=== PATIENT | male | born 1930 | race Caucasian/White ===

== ENCOUNTER 2017-12-02 15:25 | Inpatient (IN) | payer MEDICARE, BC ==
[2017-12-02] VITALS (8 sets, daily range): BP systolic 127–154; BP diastolic 59–67; PULSE 75–102; TEMP 98.2–98.8
[~2017-12-02] VITALS: Ht 162.6 cm; Wt 67.5 kg
[2017-12-02] MEDS ORDERED: FOSAMAX 70MG TA70 MG PO (18:21)
[2017-12-02] MEDS ORDERED: COUMADIN 6MG6 MG/TAB PO (18:23)
[2017-12-02] MEDS ORDERED: LEVEMIR100 U/ML SQ (18:24)
[2017-12-02] MEDS ORDERED: SYNTHROID0.075 MG/T PO (18:27)
[2017-12-02] MEDS ORDERED: REMERON 15M15 MG/TA1 PO (18:29)
[2017-12-02] MEDS ORDERED: K-DUR 10 MEQ T10 MEQ PO (18:30)
[2017-12-02] MEDS ORDERED: ZYLOPRIM 300MG300 MG PO (18:32)
[2017-12-02] MEDS ORDERED: ALDACTONE 25MG25 M1 PO (18:32)
[2017-12-02] MEDS ORDERED: MEVACOR40 MG PO (18:33)
[2017-12-02] MEDS ORDERED: LASIX 20MG TABL20 MG PO (18:34)
[2017-12-02] MEDS ORDERED: PRIL40 PO (18:34)
[2017-12-02] MEDS ORDERED: ZETIA 10MG TAB10 MG PO (18:35)
[2017-12-02] MEDS ORDERED: NAMENDA 10MG TA10 MG PO (18:35)
[2017-12-02 20:57] LABS: BASO % 0.1 % (0.0-2.0); EOS # 0.1 (0.0-0.7); EOS % 0.5 % (0-4.0); GRAN # 8.4 (1.4-6.5); GRAN % 81.2 % (42.2-75.2); HEMOGLOBIN 12.2 g/dl (13.5-18.0); LYMPH % 9.8 % (20.0-51.0); MEAN CELL VOLUME 98 fl (80.0-100.0); MEAN CORPUSCULAR HEMOGLOBIN 33 pg (27.0-31.0); MEAN CORPUSCULAR HGB CONC 33 g/dl (33.0-37.0); MEAN PLATELET VOLUME 10.5 fl (7.4-10.4); MONO # 0.8 (0.1-0.6); MONO % 7.6 % (1.7-9.3); PLATELET COUNT 141 K/mm3 (130-400); RED BLOOD COUNT 3.74 M/mm3 (4.20-5.60); REDCELL DISTRIBUTION WIDTH-CV 14.5 % (11.5-14.5)
[2017-12-02 21:03] LABS: HEMATOCRIT 36.7 % (42.0-52.0)
[2017-12-02 21:09] LABS: ALBUMIN 3.8 gm/dL (3.5-5.0); BILIRUBIN,TOTAL 0.5 mg/dL (0.0-1.0); CALCIUM 7.9 mg/dL (8.4-10.2); CREATININE, serum 1.96 mg/dL (0.66-1.25); POTASSIUM 5.1 mmol/L (3.4-5.0); TOTAL PROTEIN 6.5 gm/dL (6.4-8.2)
[2017-12-02 21:21] LABS: TROPONIN-I 0.138 ng/mL (0.000-0.034)
[2017-12-03] VITALS (8 sets, daily range): BP systolic 109–138; BP diastolic 54–70; PULSE 74–86; TEMP 97.8–98.6
[2017-12-03 03:09] LABS: COLLECTION METHOD CLEAN CATCH
[2017-12-03 03:25] LABS: PH 6 (5-8); SQUAMOUS EPITHELIAL >50 /hpf; URINE APPEARANCE Cloudy; URINE BACTERIA None Seen /hpf; URINE BILIRUBIN Negative (NEGATIVE); URINE BLOOD 2+ (NEGATIVE); URINE COLOR Red; URINE GLUCOSE Negative (NEGATIVE); URINE KETONE Negative (NEGATIVE); URINE LEUKOCYTE ESTERASE 1+ (NEGATIVE); URINE NITRATE Negative (NEGATIVE); URINE PROTEIN(semi-quant) 2+ (NEGATIVE); URINE RBC >50 /hpf; URINE UROBILINOGEN Negative (NEGATIVE)
[2017-12-03 06:40] LABS: GRAN # 5.8 (1.4-6.5); GRAN % 89.4 % (42.2-75.2); HEMOGLOBIN 11.2 g/dl (13.5-18.0); LYMPH # 0.4 (1.2-3.4); MEAN CELL VOLUME 99 fl (80.0-100.0); MEAN CORPUSCULAR HEMOGLOBIN 33 pg (27.0-31.0); MEAN CORPUSCULAR HGB CONC 34 g/dl (33.0-37.0); MEAN PLATELET VOLUME 10.6 fl (7.4-10.4); MONO # 0.2 (0.1-0.6); MONO % 3.7 % (1.7-9.3); PLATELET COUNT 133 K/mm3 (130-400); RED BLOOD COUNT 3.38 M/mm3 (4.20-5.60); REDCELL DISTRIBUTION WIDTH-CV 14.6 % (11.5-14.5)
[2017-12-03 06:46] LABS: HEMATOCRIT 33.3 % (42.0-52.0)
[2017-12-03 06:48] LABS: INR 1.8 (0.8-3.0); PROTHROMBIN TIME 20.6 SECONDS (9.7-12.8)
[2017-12-03 07:24] LABS: ALBUMIN 3.3 gm/dL (3.5-5.0); BILIRUBIN,TOTAL 0.6 mg/dL (0.0-1.0); CALCIUM 7.8 mg/dL (8.4-10.2); CHOLESTEROL RISK RATIO 3.3; CREATININE, serum 1.51 mg/dL (0.66-1.25); MAGNESIUM 1.7 mg/dL (1.6-2.3); POTASSIUM 5.7 mmol/L (3.4-5.0)
[2017-12-04] VITALS (8 sets, daily range): BP systolic 116–137; BP diastolic 56–71; PULSE 74–87; TEMP 97.1–98.6
[2017-12-04 06:40] LABS: CALCIUM 8.7 mg/dL (8.4-10.2); CREATININE, serum 1.18 mg/dL (0.66-1.25); POTASSIUM 4.1 mmol/L (3.4-5.0)
[2017-12-04 07:56] LABS: INR 1.2 (0.8-3.0); PROTHROMBIN TIME 14.1 SECONDS (9.7-12.8)
[2017-12-04] MEDS ORDERED: ZEBETA 5MG5 MG PO (13:45)
== END 2017-12-04 15:20 | disposition home or self-care (01) | DRG 660 ==
LOC: SURG 15:25
PROVIDERS: Internal Medicine; Nurse Practitioner; Nurse Practitioner Family; Physician Assistant; Urology
PROC: 0T778DZ Dilation of Left Ureter with Intraluminal Device, Via Natural or Artificial Opening Endoscopic (ICD-10-PCS; principal; 2017-12-02 19:45)
PROC: 0T578ZZ Destruction of Left Ureter, Via Natural or Artificial Opening Endoscopic (ICD-10-PCS; 2017-12-02 19:45)
PROC: BT1FZZZ Fluoroscopy of Left Kidney, Ureter and Bladder (ICD-10-PCS; 2017-12-02 19:45)
DX: N20.1 Calculus of ureter (principal); I42.9 Cardiomyopathy, unspecified; I50.32 Chronic diastolic (congestive) heart failure; N17.9 Acute kidney failure, unspecified; E87.1 Hypo-osmolality and hyponatremia; Z66 Do not resuscitate; I11.0 Hypertensive heart disease with heart failure; M35.3 Polymyalgia rheumatica; E11.42 Type 2 diabetes mellitus with diabetic polyneuropathy; Z79.01 Long term (current) use of anticoagulants; Z95.2 Presence of prosthetic heart valve; Z86.711 Personal history of pulmonary embolism; E87.5 Hyperkalemia
CPT/HCPCS: OP; 99222; 99232-AI; A9284; A9502; C1769; C2617; J0690; J1100; J1815; J1940; J2370; J2405; J2704; J2785; J3010; J7030; Q9967